=== PATIENT | male | born 1970 ===

== ENCOUNTER 2016-11-23 08:52 | Day surgery (SDC) | payer MEDICARE, MEDICAID ==
[2016-11-18 09:26] VITALS: BMI 31.0
[2016-11-23] MEDS ORDERED: Propofol 10 mg/ml Inj (20 ML) ONE (11:40)
[2016-11-23] MEDS ORDERED: Gentamicin 80 mg in 0.9% NS 80 MG/100 ML BAG IVPB ONE ×2 (11:43→12:56)
[2016-11-23] MEDS ORDERED: Ciprofloxacin 400mg/200ml D5W 400 MG/200 ML BAG IVPB ONE (11:43)
[2016-11-23] MEDS ORDERED: Lactated Ringer's 1,000 ML IV ONE (11:48)
[2016-11-23] MEDS ORDERED: Iohexol 240 (50 ml) ONE (11:57)
--- NOTE | 2016-11-23 12:14 | PCM.SURG1 ---
Surgeon's Initial Post Op Note - Surgeon's Notes Surgeon: Jeaneth Claims Technician: ELANA Type of Anesthesia: General LMA Anesthesia Administered By: staff Pre-Operative Diagnosis: Renal calculi/ureteral calculi Operative Findings: no evidence of calculi Post-Operative Diagnosis: No evidence of calculi Operation Performed: Cysto/Bilat retrograde Specimen/Specimens Removed: na Estimated Blood Loss: EBL {In ML}: 0 Blood Products Given: N/A Drains Used: No Drains Date of Surgery/Procedure: 11/23/16 Time of Surgery/Procedure: 12:14
[2016-11-23] MEDS ORDERED: HYDROmorphone 0.5 mg/0.5 ml ISec IVP PRN (12:38)
[2016-11-23] MEDS ORDERED: Lactated Ringer's 1,000 ML IV SCH (12:45)
--- NOTE | 2016-11-23 13:24 | RAD ---
PROCEDURE: Intraoperative Fluoroscopy. HISTORY: R/O CALCULI FINDINGS: Fluoroscopic assistance was provided. 21.7 seconds fluoroscopy time utilized during this procedure. Radiation dose = 1.05 mGy Please
[2016-11-23 14:20] VITALS: BP 141/87; PULSE 71; RESP 16; TEMP 97.6; O2SAT 98
--- NOTE | 2016-11-24 12:37 | RAD ---
HISTORY: URETERAL STONE COMPARISON: No prior. FINDINGS: BOWEL: Normal. No obstruction. No free air. BONES: Normal. OTHER FINDINGS: Asymmetric excretion of iodinated contrast material is appreciate bilaterally however no definite hydronephrosis appreciate the left side. Excretion through the right ureter is identified but none is seen the left. No blunting of the calices is appreciated. Ultimately, obstructive uropathy is not appreciated bilaterally. Limited pulse residual is appreciate in the urinary bladder. IMPRESSION: Please see discussion above.
--- NOTE | 2016-12-01 19:45 | OP ---
PROCEDURE DATE: 11/23/2016 PREOPERATIVE DIAGNOSIS: Renal ureteral calculi. POSTOPERATIVE DIAGNOSIS: No evidence of calculi. DESCRIPTION OF PROCEDURE: The patient signed a detailed informed consent prior to the procedure. He indicates he is still having pain in the suprapubic area with no side radiations. His prior x-rays were reviewed. The patient was brought into the room and draped and prepped in the usual manner. A timeout was taken according to the rules and regulations of [facility]. The patient was cystoscoped with a #21 Storz panendoscope. The pendulous and membranous urethra were normal. Prostatic urethra showed [id number] prostatic hypertrophy. Bladder was entered atraumatically. There were no stones or bleeding. There is clear efflux from both ureteral orifices. A right retrograde pyelogram was performed first. It showed no evidence of calculi. There was no evidence of obstruction or hydronephrosis. A left retrograde pyelogram was performed to ensure that there had not been a side error and this was normal. Based on the above findings, it appears that the patient has passed any calculus. No evidence of further calculi. The patient will be discharged on the appropriate antibiotics and followup in our office in one month. Teja Eric MD
== END 2016-11-23 13:58 | disposition home or self-care (01) ==
LOC: C.SDS 08:52
PROVIDERS: ATTEND Urology
DX: N20.1 Calculus of ureter (principal)
CPT/HCPCS: 52000; 74020; C1769; J0744; J1580; J7120